=== PATIENT | female | born 1955 | race Caucasian/White ===

== ENCOUNTER 2016-06-06 15:12 | Emergency (ER) | payer OTHER ==
[~2016-06-06] VITALS: Ht 165.1 cm; Wt 62.9 kg
[2016-06-06] MEDS ORDERED: SODIUM CHLORIDE FLUSH 10ML SYR IVF ONE (15:30)
[2016-06-06] MEDS ORDERED: ONDANSETRON 2MG/ML, 2ML IVPush ONE (15:30)
[2016-06-06] MEDS ORDERED: SODIUM CHLORIDE 0.9% 1,000ML IVBOLUS ONE (15:30)
[2016-06-06] MEDS ORDERED: ONDANSETRON 2MG/ML, 2ML ONE (15:41)
[2016-06-06] MEDS ORDERED: MORPHINE SULFATE 4 MG/ML, 1ML ONE ×3 (15:41→17:43)
[2016-06-06] MEDS: MORPHINE SULFATE 4 MG/ML, 1ML IVPush PRN ×2 (15:53→17:49)
[2016-06-06 15:59] LABS: HEMOGLOBIN 13.6 g/dL (11.7-16.4)
[2016-06-06 16:09] LABS: ASPARTATE AMINO TRANSFERASE 18 U/L (15-37); BLOOD UREA NITROGEN 15 mg/dL (7-18)
[2016-06-06] MEDS ORDERED: FLUO40CA9 PO (16:30)
[2016-06-06] MEDS ORDERED: DICYCLOMINE 10 MG/ML, 2ML IM ONE (16:30)
[2016-06-06] MEDS ORDERED: HYDR1TAB16 PO (16:30)
[2016-06-06] MEDS ORDERED: DILT60TA30 PO (16:30)
[2016-06-06] MEDS ORDERED: OMEP20TA62 PO (16:30)
[2016-06-06] MEDS ORDERED: MORPHINE SULFATE 4 MG/ML, 1ML IVPush PRN (16:30)
[2016-06-06] MEDS ORDERED: ALPR1TAB6 PO (16:30)
[2016-06-06] MEDS ORDERED: OMNIPAQUE 350 MG/ML, 100ML BOTTLE ONE (17:39)
[2016-06-06 18:15] LABS: ICTOTEST NEGATIVE
[2016-06-06 18:23] VITALS: BP 122/80
== END 2016-06-06 19:00 | disposition home or self-care (01) ==
LOC: ED 18:30
DX: K29.00 Acute gastritis without bleeding (principal); N30.90 Cystitis, unspecified without hematuria; M54.5 Low back pain; G89.29 Other chronic pain; F12.10 Cannabis abuse, uncomplicated
CPT/HCPCS: 36415; 74177; 76700; 80053; 81001; 83690; 85025; 87086; 96361; 96372; 96374; 96375; 96376; 99285; J0500; J2405; J7030; Q9967